=== PATIENT | female | born 1975 | race Hispanic/Latino ===

== ENCOUNTER → 2020-09-22 | Outpatient (CLI) | payer BC | END | disposition home or self-care (01) | LOC: RAH 16:08 | PROVIDERS: ATTEND Family Medicine | DX: Z12.31 Encounter for screening mammogram for malignant neoplasm of breast (principal) | CPT/HCPCS: 77067 ==

== ENCOUNTER → 2023-10-24 | Outpatient (CLI) | payer BC | END | disposition home or self-care (01) | LOC: RAH 12:49 | PROVIDERS: ATTEND Family Medicine | DX: Z12.31 Encounter for screening mammogram for malignant neoplasm of breast (principal); R92.323 Mammographic fibroglandular density, bilateral breasts | CPT/HCPCS: 77067 ==